=== PATIENT | male | born 1985 | race Hispanic/Latino ===

== ENCOUNTER 2018-05-27 08:35 | Day surgery (SDC) | payer OTHER ==
[2018-05-24 15:06] LABS: EOSINOPHILS % (AUTO) 1.7 % (0.0-8.0); HEMATOCRIT 46.3 % (42-54); LYMPHOCYTES % (AUTO) 26.9 % (21.0-51.0); MEAN CORPUSCULAR HEMOGLOBIN 30.7 pg (27.0-33.0); MEAN CORPUSCULAR HGB CONC 34.8 g/dL (32.0-36.0); MEAN CORPUSCULAR VOLUME 88.2 fL (79-99); NEUTROPHILS % (AUTO) 63.4 % (40.0-77.0); PLATELET COUNT (AUTO) 221 K/uL (130-400); RED BLOOD CELL COUNT(AUTO) 5.25 MIL/uL (4.50-6.20); RED CELL DISTRIBUTION WIDTH 12.3 % (11.0-15.5); WHITE BLOOD COUNT (AUTO) 4.6 K/uL (4.8-10.8)
[2018-05-24 15:12] VITALS: BP 123/71
[2018-05-24 15:18] LABS: APPEARANCE,URINE Clear (CLEAR); BILIRUBIN,URINE Negative (NEGATIVE); COLOR,URINE Yellow (YELLOW); GLUCOSE, URINE (UA) Negative (NEGATIVE); KETONES,URINE Trace mg/dL (NEGATIVE); LEUKOCYTE ESTERASE ,URINE Small (NEGATIVE); NITRATE,URINE Negative (NEGATIVE); OCCULT BLOOD,URINE Negative (NEGATIVE); PROTEIN,URINE Negative (NEGATIVE)
[2018-05-24 15:51] LABS: BACTERIA,URINE Rare /HPF (None Seen); RBC,URINE 0-1 /HPF (0-1); SQUAMOUS EPITHELIAL CELL,UR Rare /HPF (0-2)
[~2018-05-27] VITALS: Ht 172.7 cm; Wt 64.0 kg
[2018-05-27] VITALS (13 sets, daily range): BP systolic 119–129; BP diastolic 64–83
[~2018-05-27 08:35] MED LIST: LACTATED RINGERS 1000ML 1,000 ML IV SCH
[2018-05-27] MEDS ORDERED: ONDANSETRON HCL 4 MG/2 ML VIAL ONE (09:30)
[2018-05-27] MEDS ORDERED: GLYCOPYRROLATE 1 MG/5 ML SYRINGE ONE (09:30)
[2018-05-27] MEDS ORDERED: DEXAMETHASONE SOD PHOSPHATE 10MG/ML 1ML VIAL ONE (09:30)
[2018-05-27] MEDS ORDERED: NEOSTIGMINE 5MG/5ML SYR IV ONE (09:30)
[2018-05-27] MEDS ORDERED: LIDOCAINE PF 2% 5ML ABBOJECT ONE (09:30)
[2018-05-27] MEDS ORDERED: FENTANYL CITRATE PF 50 MCG/1 ML 2ML VIAL ONE ×2 (09:30→09:52)
[2018-05-27] MEDS ORDERED: PROPOFOL 10 MG/ML 20ML VIAL IV ONE (09:30)
[2018-05-27] MEDS ORDERED: MIDAZOLAM HCL 1 MG/ML 2ML VIAL ONE (09:30)
[2018-05-27] MEDS ORDERED: BUPIVACAINE/PF 0.25% 30ML VIAL IJ ONE (09:35)
--- NOTE | 2018-05-27 12:39 | NUR ---
PT TOLERATED PROCEDURE WELL, ALERT UPON ARRIVAL TO ROOM. C/O OF SORENESS TO RT GROIN STATED NO PAIN. DRESSING WAS DRY AND INTACT. HIS WAS IN ROOM, GAVE HER PRESCRIPTION AND CARE INSTRUCTIONS, BOTH VERBALIZED UNDERSTANDING. PT TAKEN OUT IN A WHEELCHAIR AND DRIVEN HOME BY .
== END 2018-05-27 12:39 | disposition home or self-care (01) ==
LOC: DAH 08:35
PROVIDERS: ATTEND Surgery
DX: K40.90 Unilateral inguinal hernia, without obstruction or gangrene, not specified as recurrent (principal); F31.9 Bipolar disorder, unspecified; J30.9 Allergic rhinitis, unspecified; Z98.890 Other specified postprocedural states; Z79.899 Other long term (current) drug therapy; F17.200 Nicotine dependence, unspecified, uncomplicated
CPT/HCPCS: 36415; 49505; 81001; 85025; A4450; A4452; A4930; C1729; C1781; J1100; J2001; J2250; J2405; J2704; J2710; J3010 ×2; J3490 ×2; J7120

== ENCOUNTER 2021-12-16 20:56 | Emergency (ER) | payer OTHER ==
[~2021-12-16] VITALS: Ht 170.2 cm; Wt 65.3 kg
[2021-12-16 20:58] VITALS: BP 130/80
[2021-12-16] MEDS ORDERED: EPIN0.3P3 IJ (21:15)
[2021-12-16] MEDS ORDERED: PRED20TA3 PO (21:15)
[2021-12-16] MEDS ORDERED: FAMO-136 PO (21:15)
[2021-12-16] MEDS ORDERED: CETI1SOL17 PO (21:15)
[2021-12-16] MEDS ORDERED: SOLU-MEDROL 125MG VIAL IM ONE (21:30)
[2021-12-16] MEDS ORDERED: FAMOTIDINE 20MG TAB PO ONE (21:30)
[2021-12-16] MEDS ORDERED: DIPHENHYDRAMINE HCL 25 MG CAPSULE PO ONE (21:30)
== END 2021-12-16 21:35 | disposition home or self-care (01) ==
LOC: EDH 20:56
DX: T78.3XXA Angioneurotic edema, initial encounter (principal); Z79.899 Other long term (current) drug therapy; Z98.890 Other specified postprocedural states
CPT/HCPCS: 99283; 96372; Q0163; J2930

== ENCOUNTER 2024-02-21 01:02 | Emergency (ER) | payer SELFPAY ==
[~2024-02-21] VITALS: Ht 170.2 cm; Wt 65.8 kg
[~2024-02-21 01:02] MED LIST changes: +CETI1SOL17 PO; +EPIN0.3P3 IJ; +FAMO-136 PO; -LACTATED RINGERS 1000ML 1,000 ML IV SCH; +PRED20TA3 PO
[2024-02-21] MEDS ORDERED: KETO10TA2 PO (01:59)
[2024-02-21] MEDS: ketOROlac 30MG VIAL (30MG/ML) IM ONE (02:05)
[2024-02-21 02:25] VITALS: BP 124/78; PULSE 78; RESP 18; TEMP 98.4; O2SAT 98
== END 2024-02-21 02:28 | disposition home or self-care (01) ==
LOC: EDH 01:02
DX: S86.812A Strain of other muscle(s) and tendon(s) at lower leg level, left leg, initial encounter (principal); Z79.899 Other long term (current) drug therapy; Z98.890 Other specified postprocedural states; V87.8XXA Person injured in other specified noncollision transport accidents involving motor vehicle (traffic), initial encounter; Y93.55 Activity, bike riding; Y92.488 Other paved roadways as the place of occurrence of the external cause; Y99.8 Other external cause status
CPT/HCPCS: 99283; 29505; 73562; 96372; J1885